=== PATIENT | female | born 1945 | race Caucasian/White ===

== ENCOUNTER 2018-07-27 18:53 | Emergency (ER) | payer OTHER ==
[~2018-07-27] VITALS: Ht 160 cm; Wt 63.5 kg
[2018-07-27] MEDS ORDERED: ALTACE2.5 MG (19:15)
[2018-07-27] MEDS ORDERED: SYNTHROID50 MCG (19:16)
[2018-07-27] MEDS ORDERED: TOPROL XL25 MG (19:16)
[2018-07-27] MEDS ORDERED: CILOSTAZOL100 MG (19:18)
[2018-07-28] MEDS ORDERED: ASA81 MG PO (13:19)
== END 2018-07-27 21:22 | disposition home or self-care (01) ==
LOC: ER 18:53
DX: S60.042A Contusion of left ring finger without damage to nail, initial encounter (principal); X58.XXXA Exposure to other specified factors, initial encounter; Y93.89 Activity, other specified; Y92.89 Other specified places as the place of occurrence of the external cause; Y99.8 Other external cause status

== ENCOUNTER → 2018-07-28 | Emergency (ER) | payer OTHER ==
[~2018-07-28] VITALS: Ht 157.5 cm; Wt 54.4 kg
[~2018-07-28] MED LIST: ALTACE2.5 MG; ASA81 MG PO; CILOSTAZOL100 MG; SYNTHROID50 MCG; TOPROL XL25 MG
== END | disposition left against medical advice (07) ==
LOC: ER 12:58
DX: Z53.20 Procedure and treatment not carried out because of patient's decision for unspecified reasons (principal)

== ENCOUNTER 2024-09-14 11:50 | Emergency (ER) | payer OTHER ==
[~2024-09-14] VITALS: Ht 160 cm; Wt 66.7 kg
[2024-09-14] MEDS ORDERED: ZESTRIL10 M1 PO (12:34)
[2024-09-14] MEDS ORDERED: ZETIA10 MG PO (12:34)
[2024-09-14] MEDS ORDERED: SIMVASTATIN80 MG PO (12:34)
[2024-09-14] MEDS ORDERED: ACETAMINOPHEN 325 MG TABLET PO ONE (13:00)
== END 2024-09-14 16:12 | disposition home or self-care (01) ==
LOC: ER 11:51
DX: S09.8XXA Other specified injuries of head, initial encounter (principal); W19.XXXA Unspecified fall, initial encounter; Y93.89 Activity, other specified; Y92.89 Other specified places as the place of occurrence of the external cause; Y99.8 Other external cause status; I10 Essential (primary) hypertension